=== PATIENT | male | born 1955 | race Caucasian/White ===

== ENCOUNTER 2017-01-09 12:48 | Observation (INO) | payer OTHER ==
[2017-01-09 12:55] VITALS: BMI 37.5
--- NOTE | 2017-01-09 13:11 | PDOC ---
History of Present Illness - History of Present Illness Initial Comments: 01/09/17 13:27 Patient is an 61 year old male with significant medical hx of hypothyroidism and HLD who is presenting to the ED with chest pain since early this morning. The patient woke up early in the morning, around 1 AM, to urinate when he felt sudden sharp chest pain. His pain was self limited upon the first occurrence and he then fell back asleep. When he woke up again later in the morning, the patient's pain returned. His pain is localized to the center of his chest and non-radiating. The patient states that he feels palpitations while he is sitting and talking. The patient has never had this chest pain before. Denies nausea, vomiting, coughing, diaphoresis, or shortness of breath. The patient last saw his PMD one month ago. He had a nuclear stress test a few months ago that was reportedly normal. PMD: Jason Hood MD <Lesa Womack - Last Filed: 01/09/17 15:55> <Virginia Rowell - Last Filed: 01/09/17 17:27> - General Chief Complaint: Chest Pain Stated Complaint: PALPITATIONS Time Seen by Provider: 01/09/17 13:06 Past History <Lesa Womack - Last Filed: 01/09/17 15:55> - Past Medical History Asthma: Yes Cardiac Disorders: Yes HTN: Yes Hypercholesterolemia: Yes Thyroid Disease: Yes - Psycho/Social/Smoking Cessation Hx Suicidal Ideation: No Smoking History: Never smoked Information on smoking cessation initiated: No <Virginia Rowell - Last Filed: 01/09/17 17:27> - Past Medical History Allergies/Adverse Reactions: Allergies Allergy/AdvReac Type Severity Reaction Status Date / Time No Known Allergies Allergy Verified 01/09/17 12:55 Home Medications: Ambulatory Orders Aspirin [ASA -] 81 mg PO DAILY 01/09/17 Enalapril Maleate [Vasotec -] 2.5 mg PO DAILY 01/09/17 Furosemide [Lasix] 20 mg PO DAILY 01/09/17 Levothyroxine [Synthroid -] 75 mcg PO DAILY 01/09/17 Montelukast Na [Singulair -] 10 mg PO HS 01/09/17 Rosuvastatin Calcium [Crestor] 10 mg PO DAILY 01/09/17 Tadalafil [Cialis] 5 mg PO DAILY 01/09/17 Review of Systems - Review of Systems Comments:: 01/09/17 13:32 GENERAL/CONSTITUTIONAL: No fever or chills. No weakness. HEAD, EYES, EARS, NOSE AND THROAT: No change in vision. No ear pain or discharge. No sore throat. CARDIOVASCULAR: Chest pain, palpitations. No shortness of breath. RESPIRATORY: No cough, wheezing, or hemoptysis. GASTROINTESTINAL: No nausea, vomiting, diarrhea or constipation. GENITOURINARY: No dysuria, frequency, or change in urination. MUSCULOSKELETAL: No joint or muscle swelling or pain. No neck or back pain. SKIN: No rash NEUROLOGIC: No headache, vertigo, loss of consciousness, or change in strength/ sensation. <Lesa Womack - Last Filed: 01/09/17 15:55> *Physical Exam - Vital Signs Last Vital Signs Temp Pulse Resp BP Pulse Ox 98.1 F 80 18 136/92 95 01/09/17 12:51 01/09/17 12:51 01/09/17 12:51 01/09/17 12:51 01/09/17 12:51 - Physical Exam Comments: 01/09/17 13:33 GENERAL: Awake, alert, and fully oriented, in no acute distress HEAD: No signs of trauma EYES: PERRLA, EOMI, sclera anicteric, conjunctiva clear ENT: Auricles normal inspection, hearing grossly normal, nares patent, oropharynx clear without exudates. Moist mucosa NECK: Normal ROM, supple, no lymphadenopathy, JVD, or masses LUNGS: Breath sounds equal, clear to auscultation bilaterally. No wheezes, and no crackles HEART: Regular rate and rhythm, normal S1 and S2, no murmurs, rubs or gallops ABDOMEN: Soft, nontender, normoactive bowel sounds. No guarding, no rebound. No masses EXTREMITIES: Normal range of motion, no edema. No clubbing or cyanosis. No cords, erythema, or tenderness NEUROLOGICAL: Cranial nerves II through XII grossly intact. Normal speech, normal gait SKIN: Warm, Dry, normal turgor, no rashes or lesions noted. ENDOCRINE: No increased thirst. No abnormal weight change. HEMATOLOGIC/LYMPHATIC: No anemia, easy bleeding, or history of blood clots. ALLERGIC/IMMUNOLOGIC: No hives or skin allergy. <Lesa Womack - Last Filed: 01/09/17 15:55> - Vital Signs Last Vital Signs Temp Pulse Resp BP Pulse Ox 98.1 F 80 18 136/92 95 01/09/17 12:51 01/09/17 12:51 01/09/17 12:51 01/09/17 12:51 01/09/17 12:51 <Virginia Rowell - Last Filed: 01/09/17 17:27> Heart Score/ECG Review - History History: Moderately suspicious - Electrocardiogram EKG: Normal - Age Age: 45-65 - Risk Factors Risk Factors Heart Score: Yes Hx Hypercholesterolemia, Yes Hx Hypertension Based on the list above the patient has:: 1-2 risk factors - Troponin Troponin: </= normal limit - Score Heart Score - Total: 3 - ECG Impressions Comment:: EKG 12:54- NSR [address]/T changes <Virginia Rowell - Last Filed: 01/09/17 17:27> ED Treatment Course - LABORATORY CBC & Chemistry Diagram: 01/09/17 13:27 01/09/17 13:27 - RADIOLOGY Radiograph Interpretation: 01/09/17 15:16 Chest X-Ray Impression: No acute pathology. Reported By: Tato Cavanaugh MD <Lesa Womack - Last Filed: 01/09/17 15:55> - LABORATORY CBC & Chemistry Diagram: 01/09/17 13:27 01/09/17 13:27 <Virginia Rowell - Last Filed: 01/09/17 17:27> Medical Decision Making - Medical Decision Making Discussion with patient at the bedside- multiple episodes of chest pain, no other associated symptoms. He had active chest pain on presentation. No acute findings on labs or CXR, but patient with cardiac risk factors. Will place on obs. Consult to Dr. Ventura. D/w Dr. Baptiste, covering Dr. Hood. <Virginia Rowell - Last Filed: 01/09/17 17:27> *DC/Admit/Observation/Transfer - Attestations Scribe Attestion: 01/09/17 13:32 Documentation prepared by Lesa Womack, acting as medical sales specialist for Virginia Rowell MD. <Lesa Womack - Last Filed: 01/09/17 15:55> - Discharge Dispostion Admit: Yes <Virginia Rowell - Last Filed: 01/09/17 17:27> Diagnosis at time of Disposition: Chest pain Qualifiers: Chest pain type: unspecified Qualified Code(s): R07.9 - Chest pain, unspecified - Discharge Dispostion Condition at time of disposition: Stable - Referrals
[2017-01-09] MEDS ORDERED: ASPIRIN 81 MG CHEWABLE TABLETS PO ONE (13:24)
[2017-01-09] MEDS ORDERED: ASPIRIN 81 MG CHEWABLE TABLETS ONE (13:46)
[2017-01-09 14:08] LABS: BASOPHIL 0.5 % (0-2.0); EOSINOPHIL 4.2 % (0-4.5); MCH 30.3 pg (25.7-33.7); MCHC 33.1 g/dl (32.0-35.9); MEAN CELL VOLUME 91.6 fl (80-96); MEAN PLT VOLUME 7.4 fl (7.5-11.1); NEUTROPHILS 63.3 % (42.8-82.8); PLATELET COUNT 268 K/MM3 (134-434); RDW 14.4 % (11.9-15.9); WHITE BLOOD COUNT 8.5 K/mm3 (4.0-10.0)
[2017-01-09 14:28] LABS: ALBUMIN 3.5 g/dl (3.4-5.0); ANION GAP 10 (8-16); BILIRUBIN,TOTAL 0.6 mg/dL (0.2-1.0); CALCIUM 8.3 mg/dL (8.5-10.1); CO2 27 mmol/L (21-32); GLUCOSE,RANDOM 100 mg/dL (74-106); SGPT/ALT 20 U/L (12-78); TOT PROT 7.3 g/dl (6.4-8.2)
[2017-01-09 14:43] LABS: ALK PHOS 83 U/L (45-117); SGOT/AST 18 U/L (15-37); TROPONIN I < 0.02 ng/ml (0.00-0.05)
--- NOTE | 2017-01-09 16:10 | HP ---
Admitting History and Physical - Primary Care Physician PCP: Jason Hood G - Admission Chief Complaint: chest pain History of Present Illness: Patient is an 61 year old male with significant medical hx of hypothyroidism and HLD who is presenting to the ED with chest pain since early this morning. The patient woke up early in the morning, around 1 AM, to urinate when he felt sudden sharp chest pain. His pain was self limited upon the first occurrence and he then fell back asleep. When he woke up again later in the morning, the patient's pain returned. His pain is localized to the center of his chest and non-radiating. The patient states that he feels palpitations while he is sitting and talking. The patient has never had this chest pain before. Denies nausea, vomiting, coughing, diaphoresis, or shortness of breath. The patient last saw his PMD one month ago. He had a nuclear stress test a few months ago that was reportedly normal. PMD: Jason Hood MD ekg/ first set of cm -ve in er cxr -ve Pt being admitted for observation. Case discussed with er physician. Pt seen in er At present comfortable History Source: Patient Limitations to Obtaining History: No Limitations - Smoking History Smoking history: Never smoked Home Medications - Allergies Allergies/Adverse Reactions: Allergies Allergy/AdvReac Type Severity Reaction Status Date / Time No Known Allergies Allergy Verified 01/09/17 12:55 - Home Medications Home Medications: Ambulatory Orders Aspirin [ASA -] 81 mg PO DAILY 01/09/17 Enalapril Maleate [Vasotec -] 2.5 mg PO DAILY 01/09/17 Furosemide [Lasix] 20 mg PO DAILY 01/09/17 Levothyroxine [Synthroid -] 75 mcg PO DAILY 01/09/17 Montelukast Na [Singulair -] 10 mg PO HS 01/09/17 [place]-3/Dha/Epa/Fish Oil [[place] 3 500 Softgel] 1 each PO BID 01/09/17 Rosuvastatin Calcium [Crestor] 10 mg PO DAILY 01/09/17 Tadalafil [Cialis] 5 mg PO DAILY 01/09/17 Family Disease History - Family Disease History Family History: Unremarkable Review of Systems - Review of Systems Constitutional: reports: No Symptoms Eyes: reports: No Symptoms Neck: reports: No Symptoms Cardiovascular: reports: Chest Pain Respiratory: reports: No Symptoms Gastrointestinal: reports: No Symptoms Genitourinary: reports: No Symptoms Neurological: reports: No Symptoms Endocrine: reports: No Symptoms Psychiatric: reports: No Symptoms Physical Examination Vital Signs: Vital Signs Temperature 98.1 F 01/09/17 12:51 Pulse Rate 80 01/09/17 12:51 Respiratory Rate 18 01/09/17 12:51 Blood Pressure 136/92 01/09/17 12:51 O2 Sat by Pulse Oximetry (%) 95 01/09/17 12:51 Constitutional: Yes: No Distress, Calm, Obese Eyes: Yes: Conjunctiva Clear Neck: Yes: Supple, Trachea Midline Cardiovascular: Yes: Regular Rate and Rhythm Respiratory: Yes: CTA Bilaterally Gastrointestinal: Yes: Normal Bowel Sounds, Soft Edema: No Neurological: Yes: Alert Imaging - Results Chest X-ray: Report Reviewed EKG: Report Reviewed Problem List - Problems (1) Chest pain Code(s): R07.9 - CHEST PAIN, UNSPECIFIED Qualifiers: Chest pain type: unspecified Qualified Code(s): R07.9 - Chest pain, unspecified Assessment/Plan Atypical Observe on tele meds reviewed add b kulwinder serial cardiac enzymes. cardiology to follow. will follow
[2017-01-09] MEDS: CARVEDILOL 3.125 MG TABLET (FP) PO SCH (21:26)
[2017-01-09] MEDS ORDERED: MONTELUKAST NA 10 MG TABLET PO SCH (22:00)
[2017-01-09] MEDS ORDERED: ROSUVASTATIN CA 10 MG TABLET (FP) PO SCH (22:00)
[2017-01-10] MEDS ORDERED: LEVOTHYROXINE NA 75 MCG TABLET (FP) PO SCH (07:00)
--- NOTE | 2017-01-10 08:19 | DS ---
Physical Examination Vital Signs: Vital Signs Temperature 97.3 F L 01/10/17 06:00 Pulse Rate 63 01/10/17 06:00 Respiratory Rate 19 01/10/17 06:00 Blood Pressure 122/66 01/10/17 06:00 O2 Sat by Pulse Oximetry (%) 95 01/10/17 06:00 Findings/Remarks: feels well denies pain Constitutional: Yes: No Distress, Calm Neck: Yes: Supple Cardiovascular: Yes: Regular Rate and Rhythm Respiratory: Yes: CTA Bilaterally Gastrointestinal: Yes: Normal Bowel Sounds, Soft Edema: No Neurological: Yes: Alert Discharge Summary Reason For Visit: CHEST PAINS Current Active Problems Chest pain (Acute) Hospital Course: Admitted for chest pain- atypical OH ruled out 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 Montalvo- will see him today. Discussed with nursing staff also Coreg also eprescribed Anticipate d/c today Condition: Stable - Instructions Referrals: Jason Hood MD [Primary Care Provider] - Disposition: HOME - Home Medications Comprehensive Discharge Medication List: Ambulatory Orders Aspirin [ASA -] 81 mg PO DAILY 01/09/17 Enalapril Maleate [Vasotec -] 2.5 mg PO DAILY 01/09/17 Furosemide [Lasix] 20 mg PO DAILY 01/09/17 Levothyroxine [Synthroid -] 75 mcg PO DAILY 01/09/17 Montelukast Na [Singulair -] 10 mg PO HS 01/09/17 [place]-3/Dha/Epa/Fish Oil [[place] 3 500 Softgel] 1 each PO BID 01/09/17 Rosuvastatin Calcium [Crestor] 10 mg PO DAILY 01/09/17 Tadalafil [Cialis] 5 mg PO DAILY 01/09/17 Carvedilol [Coreg -] 3.125 mg PO BID #60 tablet 01/10/17
--- NOTE | 2017-01-10 08:44 | CON.CARD ---
Consult Consult Specialty:: Cardiology Referred by:: Dr. Baptiste Reason for Consultation:: Chest pain - History of Present Illness Chief Complaint: Chest pain History of Present Illness: 61 year old man with a history of HTN, asthma, possible chronic diastolic, pulmonary nodules, BPH, recent nuclear stress test 09/2016 that showed no ischemia, admitted with chest pain. Pt. seen and examined. Pt. states that monday night when getting up to go to the bathroom he felt substernal chest pain that was non-radiating, pressure like, and lasted a few minutes. Later on monday morning he felt a recurrence of the chest pain. states he never had this pain before. Also associated palpitations. no sob. past LE edema none currently. no lightheadedness, dizziness, syncope, or near syncope. - History Source History Provided By: Patient, Medical Record Limitations to Obtaining History: No Limitations - Past Medical History Cardio/Vascular: Yes: CHF, HTN, Hyperlipdemia - Smoking History Smoking history: Never smoked - Social History ADL: Independent History of Recent Travel: No Home Medications - Allergies Allergies/Adverse Reactions: Allergies Allergy/AdvReac Type Severity Reaction Status Date / Time No Known Allergies Allergy Verified 01/09/17 12:55 - Home Medications Home Medications: Ambulatory Orders Aspirin [ASA -] 81 mg PO DAILY 01/09/17 Enalapril Maleate [Vasotec -] 2.5 mg PO DAILY 01/09/17 Furosemide [Lasix] 20 mg PO DAILY 01/09/17 Levothyroxine [Synthroid -] 75 mcg PO DAILY 01/09/17 Montelukast Na [Singulair -] 10 mg PO HS 01/09/17 [place]-3/Dha/Epa/Fish Oil [[place] 3 500 Softgel] 1 each PO BID 01/09/17 Rosuvastatin Calcium [Crestor] 10 mg PO DAILY 01/09/17 Tadalafil [Cialis] 5 mg PO DAILY 01/09/17 Carvedilol [Coreg -] 3.125 mg PO BID #60 tablet 01/10/17 Family Disease History - Family Disease History Family History: Denies Review of Systems - Review of Systems Constitutional: denies: No Symptoms, Chills, Diaphoresis, Fever, Lethargy, Loss of Appetite, Malaise, Night Sweats, Unintentional Wgt. Loss, Weakness, Other Eyes: denies: No Symptoms, Blind Spots, Blurred Vision, Double Vision, Eye Pain , Floaters, Photophobia, Recent Change in Vision, Other HENT: denies: No Symptoms, Difficult Swallowing, Ear Discharge, Ear Pain, Epistaxis, Gingival Bleeding, Hearing Loss, Mouth Swelling, Nasal Congestion, Ocular Prosthesis, Throat Pain, Toothache, Ringing in Ears, Other Neck: denies: No Symptoms, Decreased ROM, Lumps, Pain on Movement, Stiffness, Swollen Glands, Tenderness, Other Cardiovascular: reports: Chest Pain. denies: No Symptoms, Edema, Palpitations, Shortness of Breath, Other Respiratory: denies: No Symptoms, Cough, Exercise Intolerance, Hemoptysis, Orthopnea, PND, Snoring, SOB, SOB on Exertion, Wheezing, Other Gastrointestinal: denies: No Symptoms, Abdominal Pain, Bloating, Constipation, Diarrhea, Dysphagia, Indigestion, Melena, Nausea, Rectal Bleeding, Vomiting, Vomiting Blood, Other Genitourinary: denies: No Symptoms, Burning, Discharge, Dysuria, Flank Pain, Frequency, Hematuria, Incontinence, Lesions, Menses, Pain, Testicular Mass, Testicular Pain, Testicular Swelling, Urgency, Vaginal Bleeding, Other Breasts: denies: No Symptoms Reported, See HPI, Breast Implants, Discharge from Nipple, Lumps, Pain, Skin Changes, Other Musculoskeletal: denies: No Symptoms, Back Pain, Crepitus, Decreased ROM, Extremity Pain, Joint Pain, Joint Swelling, Muscle Pain, Muscle Cramps, Muscle Weakness, Other Integumentary: denies: No Symptoms, Blister, Bruising, Change in Color, Eczema, Erythema, Incision, Lesions, Lump, Pallor, Pruritis, Rash, Wound, Other Neurological: denies: No Symptoms, Change in LOC, Change in Speech, Confusion, Dizziness, Headache, Incoordination, Numbness, Parasthesia, Pre-Existing Deficit , Seizure, Syncope, Tremors, Unsteady Gait, Weakness, Other Endocrine: denies: No Symptoms, Excessive Sweating, Flushing, Increased Hunger, Increased Thirst, Intolerance to Cold, Intolerance to Heat, Unexplained Weight Gain, Unexplained Weight Loss, Other Hematology/Lymphatic: denies: No Symptoms, Easily Bruised, Excessive Bleeding, Swollen Glands, Other Psychiatric: denies: No Symptoms, Altered Sleep Pattern, Anxiety, Depression, Hallucinations, Panic, Paranoia, Suicidal, Other - Risk Factors Known Risk Factors: Yes: Hypercholesterolemia, Hypertension Vital Signs: Vital Signs Temperature 97.3 F L 01/10/17 06:00 Pulse Rate 63 01/10/17 06:00 Respiratory Rate 19 01/10/17 06:00 Blood Pressure 122/66 01/10/17 06:00 O2 Sat by Pulse Oximetry (%) 95 01/10/17 06:00 Constitutional: Yes: No Distress, Calm, Obese Eyes: Yes: WNL, Conjunctiva Clear, EOM Intact, PERRL HENT: Yes: WNL, Atraumatic, Normocephalic Neck: Yes: WNL, Supple, Trachea Midline Respiratory: Yes: WNL, Regular, CTA Bilaterally. No: Rales, Rhonchi, Wheezes Gastrointestinal: Yes: WNL, Normal Bowel Sounds, Soft. No: Distention, Tenderness Renal/: Yes: WNL Cardiovascular: Yes: WNL, Regular Rate and Rhythm. No: Bradycardia, Tachycardia , Pulse Irregular, Gallop, Rub, Varicosities JVD: No Carotid Bruit: No PMI: Non-Displaced Heart Sounds: Yes: S1, S2. No: Split S2, S3, S4, Clicks, Gallop, Rub, Bruit Murmur: No: Systolic Murmur, Diastolic Murmur Musculoskeletal: Yes: WNL Extremities: Yes: WNL Edema: No Peripheral Pulses WNL: Yes Peripheral Pulses: 2+ Left Doralis Pedis, 2+ Right Dorsalis Pedis Integumentary: Yes: WNL Neurological: Yes: WNL, Alert, Oriented, Cran Nerves II-XII Intact ...Motor Strength: WNL Psychiatric: Yes: WNL, Alert, Oriented - Other Data Labs, Other Data: Troponin, BNP 01/09/17 17:36 Troponin I < 0.02 Troponin, BNP 01/09/17 17:36 Troponin I < 0.02 ekg-nsr 75bpm, no sig ST abnl Echo: Pending Imaging - Results Chest X-ray: Report Reviewed, Image Reviewed EKG: Report Reviewed, Image Reviewed Other: Report Reviewed, Image Reviewed (tele-nsr, no sig arrhthymias) Problem List - Problems (1) Chest pain Code(s): R07.9 - CHEST PAIN, UNSPECIFIED Qualifiers: Chest pain type: unspecified Qualified Code(s): R07.9 - Chest pain, unspecified (2) HTN (hypertension) Code(s): I10 - ESSENTIAL (PRIMARY) HYPERTENSION (3) HLD (hyperlipidemia) Code(s): E78.5 - HYPERLIPIDEMIA, UNSPECIFIED (4) Edema Code(s): R60.9 - EDEMA, UNSPECIFIED Assessment/Plan 61 year old man with a history of HTN, asthma, possible chronic diastolic, pulmonary nodules, BPH, recent nuclear stress test 09/2016 that showed no ischemia, admitted with chest pain. Pt. seen and examined. Pt. states that monday night when getting up to go to the bathroom he felt substernal chest pain that was non-radiating, pressure like, and lasted a few minutes. Later on monday he felt a recurrence of the chest pain. states he never had this pain before. Also associated palpitations. no sob. past LE edema none currently. no lightheadedness, dizziness, syncope, or near syncope. Chest pain-atypical -recent nuclear stress test 09/2016 showed no ischemia -no ischemia on ekg on admission -cardiac enzymes wnl -no events on telemetry -chest pain has resolved -cont ASA and statin -ok from a cardiac standpoint for discharge home, pt will follow up in the office tomorrow, will consider further work up as outpatient including possible cardiac catheterization to further define coronary anatomy Chronic diastolic CHF -currently euvolemic -cont home Lasix HTN-well controlled -cont home medical regimen HLD -cont home crestor Carotid artery plaque without stenosis -cont ASA and statin -outpatient follow up
[2017-01-10 09:00] VITALS: BP 138/86; PULSE 64; TEMP 97.8
[2017-01-10] MEDS: CARVEDILOL 3.125 MG TABLET (FP) PO SCH (09:21)
[2017-01-10] MEDS ORDERED: ASPIRIN 81 MG CHEWABLE TABLETS PO SCH (10:00)
[2017-01-10] MEDS ORDERED: FUROSEMIDE 20 MG TABLET (FP) PO SCH (10:00)
[2017-01-10] MEDS ORDERED: ENOXAPARIN NA (PORCINE) 40 MG/0.4 ML DISP.SYRIN SQ SCH (10:00)
[2017-01-10] MEDS ORDERED: ENALAPRIL MALEATE 2.5 MG TABLET (FP) PO SCH (10:00)
--- NOTE | 2017-01-10 17:38 | EKG ---
Test Reason : Blood Pressure : / mmHG Vent. Rate : 078 BPM Atrial Rate : 078 BPM P-R Int : 166 ms QRS Dur : 100 ms QT Int : 372 ms P-R-T Axes : 049 021 013 degrees QTc Int : 424 ms NORMAL SINUS RHYTHM NORMAL ECG NO PREVIOUS ECGS AVAILABLE Confirmed by BANG STANLEY MD ([id number]) on 01/10/2017 5:38:32 PM Referred By: Confirmed By:BANG STANLEY MD
== END 2017-01-10 10:29 | disposition home or self-care (01) ==
LOC: JER 12:48 → JERBED 15:55 → J4W 17:27 → JERBED 17:27 → J4W 18:43
PROVIDERS: ADMIT Internal Medicine; ATTEND Internal Medicine
DX: R07.9 Chest pain, unspecified (principal); I10 Essential (primary) hypertension; E78.5 Hyperlipidemia, unspecified; E03.9 Hypothyroidism, unspecified; R60.9 Edema, unspecified
CPT/HCPCS: 36415; 71010-TC; 80053; 82550; 84443; 84484; 85025; 93005; 93010; 93306-TC; 99284-25; G0378